=== PATIENT | female | born 1960 | race African-American/Black ===

== ENCOUNTER 2023-11-29 01:20 | Emergency (ER) | payer OTHER, MEDICAID ==
[~2023-11-29] VITALS: Ht 162.6 cm; Wt 44.5 kg
[2023-11-29 01:27] VITALS: BP 106/65; PULSE 62; RESP 14; TEMP 97.6; O2SAT 99
[2023-11-29 01:54] LABS: BASOPHILS % (AUTO) 0.6 % (0.0-2.0); EOSINOPHILS # (AUTO) 0.1 K/uL (0-0.4); EOSINOPHILS % (AUTO) 1.8 % (0.0-4.0); HEMOGLOBIN 13.1 g/dL (12.0-16.0); LYMPHOCYTES # (AUTO) 1.7 K/uL (2.5-16.5); LYMPHOCYTES % (AUTO) 48.1 % (20.5-51.1); MEAN CORPUSCULAR HEMOGLOBIN 32 pg (27-31); MEAN CORPUSCULAR HGB CONC 34 g/dL (33-37); MEAN CORPUSCULAR VOLUME 96.4 fL (80-94); MONOCYTES # (AUTO) 0.3 K/uL (0.8-1.0); MONOCYTES % (AUTO) 7.2 % (1.7-9.3); NEUTROPHILS # (AUTO) 1.5 K/uL (1.8-7.7); NEUTROPHILS % (AUTO) 42.3 % (42.2-75.2); PLATELET COUNT (AUTO) 201 K/uL (140-450); RED BLOOD CELL COUNT(AUTO) 4.04 MIL/uL (4.20-5.40); RED CELL DISTRIBUTION WIDTH 13.3 % (11.6-13.7); WHITE BLOOD COUNT (AUTO) 3.6 K/uL (4.8-10.8)
[2023-11-29 01:57] LABS: APPEARANCE,URINE CLEAR (CLEAR); BILIRUBIN,URINE NEGATIVE (NEGATIVE); BLOOD, URINE 1+ (NEGATIVE); COLOR,URINE YELLOW (YELLOW); LEUKOCYTE ESTERASE ,URINE NEGATIVE (NEGATIVE); NITRITE, URINE NEGATIVE (NEGATIVE); PROTEIN,URINE NEGATIVE (NEGATIVE); UGLUCOSE TRACE (NEGATIVE)
[2023-11-29 02:03] LABS: ANION GAP 4.6 (8-16); CARBON DIOXIDE 28.6 mmol/L (21-32); CREATININE 0.6 mg/dL (0.6-1.3); POTASSIUM 3.2 mmol/L (3.5-5.1)
[2023-11-29 02:03] LABS: BACTERIA,URINE >30 (MANY) /HPF (None Seen); MUCUS,URINE 1+ /LPF (None Seen); RBC,URINE 0-5 /HPF (0-5); SQUAMOUS EPITHELIAL CELL,UR 0-3 (FEW) /LPF (0-3 (FEW)); WBC,URINE 0-5 /HPF (0-5)
[2023-11-29 02:10] LABS: AMPHETAMINE, URINE NEGATIVE ng/ml (NEG <=1000); BARBITURATE, URINE NEGATIVE ng/ml (NEG <=200); BENZODIAZEPINE, URINE POSITIVE ng/mL (NEG <=200); CANNABINOID, URINE NEGATIVE ng/mL (NEG <=50); COCAINE, URINE NEGATIVE ng/mL (NEG <=300); OPIATE, URINE NEGATIVE ng/mL (NEG <=2000); PHENCYCLIDINE SCREEN,URINE NEGATIVE ng/mL (NEG <=25)
[2023-11-29] MEDS ORDERED: cefTRIAXone 1,000 MG VIAL ONE (05:23)
[2023-11-29] MEDS: NACL 0.9% 1,000 ML IV ONE ×2 (05:48→08:57)
[2023-11-29 06:08] LABS: LACTIC ACID 2.4 mmol/L (0.4-2.0)
[2023-11-29] MEDS ORDERED: NITR100C7 PO (06:08)
[2023-11-29] MEDS: ACETAMINOPHEN EXTRA STRENGTH 500 MG TAB PO ONE (08:15)
[2023-11-29 12:08] VITALS: BP 168/91; PULSE 68; RESP 18; TEMP 97.9; O2SAT 99
== END 2023-11-29 12:11 | disposition home or self-care (01) ==
LOC: EDBD 01:20 → MED 01:20
DX: R40.4 Transient alteration of awareness (principal); F10.129 Alcohol abuse with intoxication, unspecified; T42.4X5A Adverse effect of benzodiazepines, initial encounter; N39.0 Urinary tract infection, site not specified; Y90.9 Presence of alcohol in blood, level not specified; Z59.00 Homelessness unspecified; Z88.8 Allergy status to other drugs, medicaments and biological substances; Y92.89 Other specified places as the place of occurrence of the external cause
CPT/HCPCS: 36415; 70450; 80048; 80305; 81001; 83605; 85025; 87040; 87086; 96361; 96365; 99285; G0482; J0696

== ENCOUNTER 2023-11-29 16:27 | Emergency (ER) | payer OTHER, MEDICAID ==
[~2023-11-29 16:27] MED LIST: NITR100C7 PO
== END 2023-11-29 17:25 | disposition left against medical advice (07) ==
LOC: MED 16:27
DX: L29.9 Pruritus, unspecified (principal); Z53.21 Procedure and treatment not carried out due to patient leaving prior to being seen by health care provider